=== PATIENT | male | born 1935 | race Caucasian/White ===

== ENCOUNTER 2019-05-08 10:23 | Outpatient (CLI) | payer MEDICARE, BC ==
--- NOTE | 2019-05-08 11:28 | RAD ---
PA AND LATERAL VIEWS CHEST: Date: 05/08/2019 HISTORY: Dyspnea. FINDINGS: The heart size is normal. The aorta is tortuous. The lungs are expanded without lobar consolidation, pneumothoraces, or pleural effusions. IMPRESSION: No acute process. POS: [facility]
== END 2019-05-08 10:24 | disposition home or self-care (01) ==
LOC: RAD 10:23
PROVIDERS: ATTEND Internal Medicine
DX: R06.00 Dyspnea, unspecified (principal)
CPT/HCPCS: 71046

== ENCOUNTER 2019-12-22 14:27 | Outpatient (CLI) | payer MEDICARE, BC ==
--- NOTE | 2019-12-22 14:55 | RAD ---
RADIOGRAPH CHEST 2 VIEW: DATE: 12/22/2019 HISTORY: 84-year-old male follow-up pleural effusion and pneumothorax. 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 There is no evidence of airspace density, pulmonary edema , or pneumothorax. There is no cardiomegaly. The previously demonstrated small left apical pneumothorax is no longer visualized. Dual-lead left subclavian pacemaker, and small caliber left ple ural catheter, remain, although the distal tip of the pleural catheter is more inferior and lateral than previously. Minimal blunting of the lateral and posterior costophrenic angles bilaterally remain s. IMPRESSION: 1) No acute cardiopulmonary findings. 2) interval resolution of the small left pneumothorax. 3) tiny bilateral pleural effusions remain. 4) small bore left pleural tube remains. 5) ectasia of thoracic aorta.
== END 2019-12-22 14:28 | disposition home or self-care (01) ==
LOC: BICRAD 14:27
PROVIDERS: ATTEND Thoracic Surgery (Cardiothoracic Vascular Surgery)
DX: J90 Pleural effusion, not elsewhere classified (principal); I77.810 Thoracic aortic ectasia
CPT/HCPCS: 71046

== ENCOUNTER 2020-05-10 08:58 | Outpatient (CLI) | payer MEDICARE, BC ==
[2020-05-10 10:03] LABS: Estimated GFR-MDRD - POC Greater than 90
[2020-05-10] MEDS ORDERED: Iopamidol-370 76% 500 ML 1 ML ONE (14:10)
== END 2020-05-10 08:59 | disposition home or self-care (01) ==
LOC: BICCT 08:58
PROVIDERS: ATTEND Internal Medicine Critical Care Medicine
DX: J90 Pleural effusion, not elsewhere classified (principal); J18.9 Pneumonia, unspecified organism; R91.8 Other nonspecific abnormal finding of lung field
CPT/HCPCS: 71260; 82565; Q9967

== ENCOUNTER 2021-05-23 11:11 | Outpatient (CLI) | payer MEDICARE, BC | END 2021-05-23 11:12 | disposition home or self-care (01) | LOC: RAD 11:11 | PROVIDERS: ATTEND Internal Medicine Critical Care Medicine | DX: R06.00 Dyspnea, unspecified (principal); R91.8 Other nonspecific abnormal finding of lung field; J94.8 Other specified pleural conditions | CPT/HCPCS: 71046 ==

== ENCOUNTER 2021-05-26 11:04 | Outpatient (CLI) | payer MEDICARE, BC ==
[2021-05-26 23:38] LABS: SARS-CoV-2 PCR by NAA Not Detected (NotDetected)
== END 2021-05-26 11:05 | disposition home or self-care (01) ==
LOC: LABBT 11:04
PROVIDERS: ATTEND Internal Medicine Critical Care Medicine
DX: Z20.822 Contact with and (suspected) exposure to COVID-19 (principal)
CPT/HCPCS: U0003; U0005

== ENCOUNTER 2021-06-23 11:03 | Outpatient (CLI) | payer MEDICARE, BC ==
[2021-06-24 01:01] LABS: SARS-CoV-2 PCR by NAA Not Detected (NotDetected)
== END 2021-06-23 11:04 | disposition home or self-care (01) ==
LOC: LABBT 11:03
PROVIDERS: ATTEND Surgery
DX: Z01.818 Encounter for other preprocedural examination (principal); Z20.822 Contact with and (suspected) exposure to COVID-19
CPT/HCPCS: 93005; U0003; U0005; 93010

== ENCOUNTER 2021-09-12 14:11 | Outpatient (CLI) | payer MEDICARE, BC | END 2021-09-12 14:12 | disposition home or self-care (01) | LOC: BICRAD 14:11 | PROVIDERS: ATTEND Nurse Practitioner Family | DX: C45.0 Mesothelioma of pleura (principal) | CPT/HCPCS: 71046 ==

== ENCOUNTER 2021-12-02 11:25 | Outpatient (CLI) | payer MEDICARE, BC | END 2021-12-02 11:26 | disposition home or self-care (01) | LOC: BICRAD 11:25 | PROVIDERS: ATTEND Nurse Practitioner Family | DX: C45.0 Mesothelioma of pleura (principal); R50.9 Fever, unspecified; J90 Pleural effusion, not elsewhere classified; J98.4 Other disorders of lung | CPT/HCPCS: 71046 ==